=== PATIENT | male | born 1970 | race Hispanic/Latino ===

== ENCOUNTER 2020-05-22 22:19 | Inpatient (IN) | payer MEDICARE ==
[2020-05-22] MEDS ORDERED: AZITHROMYCIN 500 MG in SODIUM CHLORIDE 0.9% 250ML 250 ML IV ONE (22:30)
[2020-05-22] MEDS ORDERED: SODIUM CHLORIDE 0.9% 1000 ML 1,000 ML IV ONE (22:30)
[2020-05-22] MEDS ORDERED: dexAMETHasone 4 MG/ML VIAL IV ONE (22:31)
[2020-05-22] MEDS ORDERED: ONDANSETRON 4 MG/2 ML INJ IV ONE (22:31)
--- NOTE | 2020-05-22 22:32 | Emergency Department Report ---
ED Fever HPI - General Chief Complaint: Fever Stated Complaint: FEVER N/V PUI?: Yes Time Seen by Provider: 05/22/20 22:28 Source: patient, EMS Exam Limitations: clinical condition - History of Present Illness Initial Comments: Patient is a 50-year-old male that presents emergency room with fever and nausea, vomiting, hypoxia. Patient brought in by EMS. Patient was transferred from [facility] to be evaluated in this emergency room. Report received from EMS. EMS states that the prison stated that the patient had fever, nausea, vomiting, cough x3 days. EMS states that the symptoms are worsening per report. Patient able to answer some yes/no questions. Patient is nonverbal. Fever Severity/Quality: greater than 102 F Fever Therapy [employer]ANT: Tylenol Associated Symptoms: cough, nausea/vomiting. denies: abdominal pain, chest pain, confusion, diaphoresis, headache, muscle aches, rash, shortness of breath, sore throat, stiff neck, syncope, weakness ED Review of Systems ROS: Stated complaint: FEVER N/V Other details as noted in HPI Comment: All other systems reviewed and negative ED Past Medical Hx - Past Medical History Previous Medical History?: Yes Hx Hypertension: Yes (no meds in 4 years) Hx CVA: Yes (02/2015) Hx Diabetes: Yes Hx HIV: No - Surgical History Past Surgical History?: No - Family History Family history: no significant - Social History Smoking Status: Never Smoker Substance Use Type: None - Medications Home Medications: Home Medications Medication Instructions Recorded Confirmed Last Taken Type HYDROcodone/APAP 5-325 [[place] 1 each PO Q4H PRN #60 tablet 02/15/15 02/18/15 Unknown Rx 5-325 mg TAB] Insulin NPH/Regular [NovoLIN 70/30] 15 unit SUB-Q BIDDIAB 30 Days ml 02/15/15 02/18/15 02/18/15 Rx Metoprolol [Lopressor TAB] 50 mg PO TID #90 tablet 02/15/15 02/18/15 02/18/15 Rx amLODIPine 10 mg PO QDAY #30 tablet 02/15/15 02/18/15 02/18/15 Rx lisinopriL [Zestril TAB] 20 mg PO BID #60 tablet 02/15/15 02/18/15 02/18/15 Rx ED Physical Exam - General General appearance: alert, in no apparent distress - Head Head exam: Present: atraumatic, normocephalic - Eye Eye exam: Present: normal appearance, PERRL Pupils: Present: normal accommodation - ENT ENT exam: Present: mucous membranes moist - Neck Neck exam: Present: normal inspection - Respiratory Respiratory exam: Present: decreased breath sounds. Absent: respiratory distress, wheezes, rales - Cardiovascular Cardiovascular Exam: Present: regular rate, normal rhythm. Absent: systolic murmur, diastolic murmur, rubs, gallop - GI/Abdominal GI/Abdominal exam: Present: soft, normal bowel sounds - Rectal Rectal exam: Present: deferred - Extremities Exam Extremities exam: Present: normal inspection - Back Exam Back exam: Present: normal inspection - Neurological Exam Neurological exam: Present: alert, altered - Psychiatric Psychiatric exam: Present: normal affect, normal mood - Skin Skin exam: Present: warm, dry, intact, normal color. Absent: rash ED Course Vital Signs 05/22/20 05/22/20 05/22/20 22:20 22:24 22:31 Temperature 98.3 F Pulse Rate 107 H 108 H 109 H Respiratory 18 13 15 Rate Blood Pressure 160/93 160/93 O2 Sat by Pulse 92 92 Oximetry 05/22/20 05/22/20 05/22/20 22:45 23:01 23:15 Temperature Pulse Rate 113 H 110 H 107 H Respiratory 18 20 16 Rate Blood Pressure 160/93 155/108 152/92 O2 Sat by Pulse 96 Oximetry 05/22/20 05/22/20 05/23/20 23:31 23:45 00:01 Temperature Pulse Rate 111 H 99 H 101 H Respiratory 18 12 13 Rate Blood Pressure 153/90 148/88 138/77 O2 Sat by Pulse 97 98 98 Oximetry 05/23/20 05/23/20 05/23/20 00:15 00:31 00:45 Temperature Pulse Rate 101 H 98 H 105 H Respiratory 15 14 16 Rate Blood Pressure 136/69 151/82 153/83 O2 Sat by Pulse 96 97 94 Oximetry 05/23/20 05/23/20 05/23/20 01:01 01:15 01:31 Temperature Pulse Rate 110 H 103 H 99 H Respiratory 13 12 17 Rate Blood Pressure 152/92 153/83 156/81 O2 Sat by Pulse Oximetry 05/23/20 05/23/20 05/23/20 01:45 02:01 02:15 Temperature Pulse Rate 100 H 102 H 102 H Respiratory 15 13 14 Rate Blood Pressure 145/80 147/76 166/92 O2 Sat by Pulse Oximetry 05/23/20 05/23/20 05/23/20 02:31 02:45 03:01 Temperature Pulse Rate 99 H 99 H 107 H Respiratory 15 13 12 Rate Blood Pressure 155/87 152/86 159/93 O2 Sat by Pulse Oximetry 05/23/20 05/23/20 05/23/20 03:15 03:31 03:45 Temperature Pulse Rate 103 H 105 H 101 H Respiratory 16 8 L 13 Rate Blood Pressure 170/83 146/89 163/91 O2 Sat by Pulse 95 95 Oximetry - Reevaluation(s) Reevaluation #1: Patient vomiting. Patient will be given Zofran and fluids. Patient Deven has 1 L of normal saline hanging from EMS. Patient hypoxic and placed on oxygen. Patient's oxygen saturation improved to 99% with 4 L of O2. 05/22/20 22:40 Reevaluation #2: I discussed all results with patient. I discussed plan of care with patient. Patient agrees with plan of care and admission. Patient to be admitted to the hospitalist service. Patient's oxygen better. Patient is not vomiting. Patient receiving fluids and antibiotics. 05/23/20 00:50 - Consultations Consultation #1: Hospitalist consulted for admission. Hospitalist to admit patient. 05/23/20 00:50 ED Medical Decision Making - Lab Data Result diagrams: 05/22/20 22:52 05/23/20 00:56 - Radiology Data Radiology results: report reviewed, image reviewed interpreted by me: Left-sided pneumonia CHEST 1 VIEW INDICATION / CLINICAL INFORMATION: Dyspnea. COMPARISON: None available. FINDINGS: SUPPORT DEVICES: None. HEART / MEDIASTINUM: No significant abnormality. LUNGS / PLEURA: Minimal parenchymal density in the left lower lung No pneumothorax. ADDITIONAL FINDINGS: No significant additional findings. IMPRESSION: Minimal parenchymal density in the left lower lung. The right lung is clear. - Medical Decision Making Patient is a 50-year-old male that presents emergency room with complaints fever and nausea. Patient came [facility] a [facility]. Patient is brought in by EMS. Patient initially found to be hypoxic and was placed on oxygen and his oxygen improved. Patient started on sepsis protocol early in his ER stay. Patient given fluids and antibiotics immediately. Patient's chest x-ray shows a unilateral pneumonia. Patient's labs show a normal white count with a lactic acidosis. Patient also found to have a UTI. Patient admitted to the hosp italist service. - Differential Diagnosis Nausea vomiting, fever, COVID-19, pneumonia, hypoxia Critical Care Time: Yes Critical care time in (mins) excluding proc time.: 45 Critical care attestation.: If time is entered above; I have spent that time in minutes in the direct care of this critically ill patient, excluding procedure time. Critical Care Time: 45 minutes ED Disposition Clinical Impression: SIRS (systemic inflammatory response syndrome), Renal insufficiency, Dehydration, Lactic acid acidosis, Person under investigation for COVID-19 Respiratory failure Qualifiers: Chronicity: acute Respiratory failure complication: hypoxia Qualified Code(s): J96.01 - Acute respiratory failure with hypoxia Pneumonia Qualifiers: Pneumonia type: due to unspecified organism Laterality: left Lung location: unspecified part of lung Qualified Code(s): J18.9 - Pneumonia, unspecified organism UTI (urinary tract infection) Qualifiers: Urinary tract infection type: catheter-associated UTI Indwelling urinary catheter type: indwelling urethral catheter Encounter type: initial encounter Q ualified Code(s): T83.511A - Infection and inflammatory reaction due to indwelling urethral catheter, initial encounter; N39.0 - Urinary tract infection, site not specified Disposition: OP ADMIT IP TO THIS HOSP Is pt being admited?: Yes Does the pt Need Aspirin: No Condition: Critical Time of Disposition: 00:48
[2020-05-22] MEDS ORDERED: cefTRIAXone/NS 2 GM/100 ML 2 GM/100 ML BAG IV ONE (22:43)
[2020-05-22 23:14] LABS: Basophils % (Auto) 0.3 % (0.0-1.8); Hematocrit 42.9 % (35.5-45.6); Hemoglobin 14.5 gm/dl (11.8-15.2); Lymphocytes # (Auto) 0.3 K/mm3 (1.2-5.4); Lymphocytes % (Auto) 5.6 % (13.4-35.0); Mean Corpuscular HGB Conc 34 % (32-34); Mean Corpuscular Volume 87 fl (84-94); Monocytes # (Auto) 0.6 K/mm3 (0.0-0.8); Monocytes % (Auto) 9.8 % (0.0-7.3); Platelet Count 222 K/mm3 (140-440); Red Blood Count 4.92 M/mm3 (3.65-5.03); Red Cell Distribution Width 12.2 % (13.2-15.2)
--- NOTE | 2020-05-22 23:25 | XRay Report ---
CHEST 1 VIEW INDICATION / CLINICAL INFORMATION: Dyspnea. COMPARISON: None available. FINDINGS: SUPPORT DEVICES: None. HEART / MEDIASTINUM: No significant abnormality. LUNGS / PLEURA: Minimal parenchymal density in the left lower lung No pneumothorax. ADDITIONAL FINDINGS: No significant additional findings. IMPRESSION: Minimal parenchymal density in the left lower lung. The right lung is clear. Signer Name: Micky Khan MD FACR Signed: 05/22/2020 11:21 PM Workstation Name: [id number]
[2020-05-22 23:40] LABS: Calcium 9.4 mg/dL (8.4-10.2)
[2020-05-23] MEDS ORDERED: SODIUM CHLORIDE 0.9% 1000 ML 1,000 ML IV ONE ×2 (00:46→00:47)
[2020-05-23 01:16] LABS: Bacteria,Urine 1+ /HPF (Negative); Bilirubin,Urine NEG (Negative); Blood,Urine LG (Negative); Color,Urine Yellow (Yellow); Mucus,Urine FEW /HPF; Urobilinogen,Urine < 2.0 mg/dL (<2.0)
[2020-05-23 01:20] LABS: RBC,Urine > 182.0 /HPF (0.0-6.0)
[2020-05-23] MEDS ORDERED: ACETAMINOPHEN 325 MG TAB PO PRN (01:41)
[2020-05-23] MEDS ORDERED: ONDANSETRON 4 MG/2 ML INJ IV PRN (01:42)
[2020-05-23] MEDS ORDERED: guaiFENesin 100 MG/5 ML ORAL LIQD PO PRN (01:43)
[2020-05-23 01:46] LABS: C-Reactive Protein 6.3 mg/dL (0.00-1.30)
[2020-05-23] MEDS ORDERED: DEXTROSE 50% IN WATER (25GM) 50 ML SYRINGE IV PRN (01:46)
[2020-05-23] MEDS ORDERED: VANCOMYCIN 1,250 MG in SODIUM CHLORIDE 0.9% 250ML 250 ML IV ONE (03:00)
[2020-05-23] MEDS ORDERED: VANCOMYCIN PHARMACY TO DOSE IV SCH (03:00)
--- NOTE | 2020-05-23 04:12 | History and Physical Report ---
History of Present Illness Date of examination: 05/23/20 Date of admission: 05/23/20 01:37 Chief complaint: Fever ,nausea and vomiting and cough History of present illness: 50 year old male who was brought from [facility] with complaint of fever, cough, nausea and vomiting and low oxygen saturation. There is no chest pain. Past History Past Medical History: diabetes, hypertension, stroke Past Surgical History: No surgical history Social history: other (correction resident) Family history: no significant family history Medications and Allergies Allergies Allergy/AdvReac Type Severity Reaction Status Date / Time No Known Allergies Allergy Verified 05/22/20 22:33 Home Medications Medication Instructions Recorded Confirmed Last Taken Type HYDROcodone/APAP 5-325 [[place] 1 each PO Q4H PRN #60 tablet 02/15/15 02/18/15 Unknown Rx 5-325 mg TAB] Insulin NPH/Regular [NovoLIN 70/30] 15 unit SUB-Q BIDDIAB 30 Days ml 02/15/15 02/18/15 02/18/15 Rx Metoprolol [Lopressor TAB] 50 mg PO TID #90 tablet 02/15/15 02/18/15 02/18/15 Rx amLODIPine 10 mg PO QDAY #30 tablet 02/15/15 02/18/15 02/18/15 Rx lisinopriL [Zestril TAB] 20 mg PO BID #60 tablet 02/15/15 02/18/15 02/18/15 Rx Active Meds: Active Medications Acetaminophen (Tylenol) 650 mg PO Q4H PRN PRN Reason: Fever >101 Dextrose (D50w (25gm) Syringe) 50 ml IV Q30MIN PRN; Protocol PRN Reason: Hypoglycemia Guaifenesin (Robitussin) 200 mg PO Q4H PRN PRN Reason: Cough Heparin Sodium (Porcine) (Heparin) 5,000 unit SUB-Q Q12HR BRENDA Azithromycin 500 mg/ Sodium (Chloride) 250 mls @ 250 mls/hr IV Q24H BRENDA; Protocol Ceftriaxone Sodium (Rocephin/Ns 2 Gm/100 Ml) 2 gm in 100 mls @ 200 mls/hr IV Q24H BRENDA; Protocol Vancomycin HCl 1,250 mg/ (Sodium Chloride) 275 mls @ 166.667 mls/hr IV ONCE ONE Stop: 05/23/20 04:38 Insulin Human Regular (Humulin R) 0 unit SUB-Q AC BRENDA; Protocol Insulin Human Regular (Humulin R) 0 unit SUB-Q QHS BRENDA; Protocol Ondansetron HCl (Zofran) 4 mg IV Q8H PRN PRN Reason: Nausea And Vomiting Review of Systems Constitutional: fever, weakness, no weight loss, no weight gain, no chills, no sweats, no night sweats Eyes: bilateral: other (NO BILATERAL EYE SYMPTOM) Ears, nose, mouth and throat: no ear pain, no ear discharge, no decreased hearing, no nose pain, no nasal congestion, no nasal discharge, no sinus pressure, no dental pain, no mouth pain, no dysphagia, no hoarseness, no sore throat, no swelling in mouth, no headache Cardiovascular: shortness of breath, no chest pain, no palpitations, no ra pid/irregular heart beat, no syncope, no lightheadedness, no claudication, no high blood pressure Respiratory: cough, shortness of breath, no congestion Gastrointestinal: nausea, vomiting, no abdominal pain, no constipation, no change in bowel habits, no hematemesis, no hematochezia, no loss of appetite, no jaundice Genitourinary Male: no hematuria, no flank pain, no discharge, no urinary frequency, no urinary hesitancy, no nocturia, no impotence, no testicular pain Rectal: no pain, no itching Musculoskeletal: no neck stiffness, no neck pain, no myalgias Integumentary: no rash, no pruritis, no redness, no sores, no wounds, no jaundice, no boils, no darkening of skin, no acne Neurological: no paralysis, no weakness, no parathesias, no numbness, no tingling, no seizures, no vertigo, no headaches, no migraines, no convulsions, no aphasia, no change in speech, no change in mentation, no confusion, no double vision Psychiatric: no anxiety, no memory loss, no change in sleep habits, no sleep disturbances, no insomnia, no hypersomnia, no change in appetite, no change in libido, no anhedonia, no anxiety attacks Endocrine: no cold intolerance, no heat intolerance, no polyphagia, no polydipsia, no polyuria, no nocturia, no excessive sweating, no thyroid mass, no palpatations, no high blood sugars, no low blood sugars Hematologic/Lymphatic: no lymphadenopathy, no lymphedema, no thrombophilia Allergic/Immunologic: no urticaria, no anaphylaxis Exam - Constitutional Vitals: Temp Pulse Resp BP Pulse Ox 98.3 F 101 H 13 163/91 95 05/22/20 22:20 05/23/20 03:45 05/23/20 03:45 05/23/20 03:45 05/23/20 03:45 General appearance: Present: no acute distress - EENT Eyes: Present: PERRL ENT: hearing intact - Neck Neck: Present: supple, normal ROM - Respiratory Respiratory effort: normal - Cardiovascular Rhythm: regular Heart Sounds: Present: S1 & S2. Absent: gallop, systolic murmur, diastolic m urmur, click - Extremities Extremities: no ischemia, No edema Peripheral Pulses: within normal limits - Abdominal General gastrointestinal: Present: soft, non-tender, non-distended. Absent: tender, distended, rigid, hepatomegaly, splenomegaly, mass Male genitourinary: Present: deferred - Rectal Rectal Exam: deferred - Integumentary Integumentary: Present: clear, warm, dry. Absent: jaundice - Musculoskeletal Musculoskeletal: strength equal bilaterally - Psychiatric Psychiatric: appropriate mood/affect HEART Score - HEART Score Age: 45-65 Risk factors: > 3 risk factors or hx of atherosclerotic disease - Critical Actions Critical Actions: 4-6 pts:12-16.6% risk of adverse cardiac event. Should be admitted Results - Labs CBC & Chem 7: 05/22/20 22:52 05/23/20 00:56 Labs: Laboratory Last Values WBC 6.2 K/mm3 (4.5-11.0) 05/22/20 22:52 RBC 4.92 M/mm3 (3.65-5.03) 05/22/20 22:52 Hgb 14.5 gm/dl (11.8-15.2) 05/22/20 22:52 Hct 42.9 % (35.5-45.6) 05/22/20 22:52 MCV 87 fl (84-94) 05/22/20 22:52 MCH 29 pg (28-32) 05/22/20 22:52 MCHC 34 % (32-34) 05/22/20 22:52 RDW 12.2 % (13.2-15.2) L 05/22/20 22:52 Plt Count 222 K/mm3 (140-440) 05/22/20 22:52 Lymph % (Auto) 5.6 % (13.4-35.0) L 05/22/20 22:52 [place] % (Auto) 9.8 % (0.0-7.3) H 05/22/20 22:52 Eos % (Auto) 0.0 % (0.0-4.3) 05/22/20 22:52 Baso % (Auto) 0.3 % (0.0-1.8) 05/22/20 22:52 Lymph # 0.3 K/mm3 (1.2-5.4) L 05/22/20 22:52 [place] # 0.6 K/mm3 (0.0-0.8) 05/22/20 22:52 Eos # 0.0 K/mm3 (0.0-0.4) 05/22/20 22:52 Baso # 0.0 K/mm3 (0.0-0.1) 05/22/20 22:52 Seg Neutrophils % 84.3 % (40.0-70.0) H 05/22/20 22:52 Seg Neutrophils # 5.2 K/mm3 (1.8-7.7) 05/22/20 22:52 D-Dimer 636.62 ng/mlDDU (0-234) H 05/23/20 00:56 Sodium 140 mmol/L (137-145) 05/22/20 22:52 Potassium 4.5 mmol/L (3.6-5.0) 05/22/20 22:52 Chloride 99.2 mmol/L (98-107) 05/22/20 22:52 Carbon Dioxide 25 mmol/L (22-30) 05/22/20 22:52 Anion Gap 20 mmol/L 05/22/20 22:52 BUN 30 mg/dL (9-20) H 05/22/20 22:52 Creatinine 1.4 mg/dL (0.8-1.3) H 05/22/20 22:52 Estimated GFR 54 ml/min 05/22/20 22:52 BUN/Creatinine Ratio 21 % 05/22/20 22:52 Glucose 237 mg/dL (75-100) H 05/23/20 00:56 Lactic Acid 1.60 mmol/L (0.7-2.0) 05/23/20 00:56 Calcium 9.4 mg/dL (8.4-10.2) 05/22/20 22:52 Ferritin 435.3 ng/mL (30.0-300.0) H 05/23/20 00:56 Total Bilirubin 0.40 mg/dL (0.1-1.2) 05/22/20 22:52 AST 20 units/L (5-40) 05/22/20 22:52 ALT 18 units/L (7-56) 05/22/20 22:52 Alkaline Phosphatase 74 units/L (35-129) 05/22/20 22:52 Lactate Dehydrogenase 214 units/L (91-180) H 05/23/20 00:56 C-Reactive Protein 6.30 mg/dL (0.00-1.30) H 05/23/20 00:56 Total Protein 8.1 g/dL (6.3-8.2) 05/22/20 22:52 Albumin 4.0 g/dL (3.9-5) 05/22/20 22:52 Albumin/Globulin Ratio 1.0 % 05/22/20 22:52 Urine Color Yellow (Yellow) 05/23/20 00:49 Urine Turbidity Slightly-cloudy (Clear) 05/23/20 00:49 Urine pH 7.0 (5.0-7.0) 05/23/20 00:49 Ur Specific [place] 1.009 (1.003-1.030) 05/23/20 00:49 Urine Protein 100 mg/dl mg/dL (Negative) 05/23/20 00:49 Urine Glucose (UA) >=500 mg/dL (Negative) 05/23/20 00:49 Urine Ketones Tr mg/dL (Negative) 05/23/20 00:49 Urine Blood Lg (Negative) 05/23/20 00:49 Urine Nitrite Neg (Negative) 05/23/20 00:49 Urine Bilirubin Neg (Negative) 05/23/20 00:49 Urine Urobilinogen < 2.0 mg/dL (<2.0) 05/23/20 00:49 Ur Leukocyte Esterase Lg (Negative) 05/23/20 00:49 Urine WBC (Auto) 46.0 /HPF (0.0-6.0) H 05/23/20 00:49 Urine RBC (Auto) > 182.0 /HPF (0.0-6.0) 05/23/20 00:49 Urine Bacteria (Auto) 1+ /HPF (Negative) 05/23/20 00:49 Urine Mucus Few /HPF 05/23/20 00:49 Valentin/IV: IV Catheter Type [Right INT / Saline Lock Antecubital] Assessment and Plan - Patient Problems (1) Sepsis Current Visit: Yes Status: Acute Plan to address problem: 1. I.V VANCOMYCIN ANTIBIOTIC 2. I.V NORMAL SALINE MAINTENANCE FLUID 3. I.V ROCEPHINE ANTIBIOTIC 4. I.V ZITHROMYCIN (2) Person under investigation for COVID-19 Current Visit: Yes Status: Acute Plan to address problem: 1. COVID -19 TESTING 2. INFECTIOUS DISEASE CONSULT 3. DROPLET AND CONTACT ISOLATION (3) Pneumonia Current Visit: Yes Status: Acute Qualifiers: Pneumonia type: due to unspecified organism Laterality: left Lung location: unspecified part of lung Qualified Code(s): J18.9 - Pneumonia, unspecified organism Plan to address problem: 1. I.V ZITHROMAX ANTIBIOTIC 2. I.V ROCEPHIN ANTIBIOTIC 3. TYLENOL FOR FEVER (4) Urinary tract infection Current Visit: Yes Status: Acute Plan to address problem: 1.V ROCEPHINE ANTIBIOTIC
[2020-05-23] MEDS ORDERED: HEPARIN 5,000 UNIT/1 ML VIAL ONE (05:08)
[2020-05-23] MEDS: HEPARIN 5,000 UNIT/1 ML VIAL SUB-Q SCH ×2 (05:13→12:54)
[2020-05-23] MEDS: INSULIN REGULAR, HUMAN 100 UNIT/ML 3ML VIAL SUB-Q SCH ×3 (07:25→17:37)
[2020-05-23] MEDS ORDERED: DOCUSATE SODIUM 100 MG CAP PO PRN (10:00)
[2020-05-23] MEDS: CEFEPIME/NS 2 GM/100 ML 2 GM/100 ML BAG IV SCH (10:32)
[2020-05-23 10:33] LABS: BUN/Creatinine Ratio 22; Blood Urea Nitrogen 20 mg/dL (9-20); Calcium 8.3 mg/dL (8.4-10.2); Hemolysis Index 5
[2020-05-23] MEDS: amLODIPine 5 MG TAB PO SCH (12:54)
[2020-05-23] MEDS: buPROPion XL 150 MG TAB PO SCH (12:55)
[2020-05-23] MEDS: carvediloL 12.5 MG TAB PO SCH (12:55)
[2020-05-23] MEDS: TAMSULOSIN 0.4 MG CAP PO SCH (12:56)
[2020-05-23] MEDS: FLUoxetine 10 MG TAB PO SCH (12:56)
--- NOTE | 2020-05-23 15:51 | Event Note ---
Date: 05/23/20 This is a 50-year-old male who is a resident of [facility] with DM, HTN, CVA, depression, and urinary retention/BPH who presents to the emergency department on 05/22 for fever, cough, nausea and vomiting and low oxygen saturation. He was determined to be a COVID PUI. However his COVID PCR resulted as negative 05/23 late afternoon. His home medications have been reconciled. He was placed on IV azithromycin, cefepime, vancomycin for HCAP. He is status post 3 L normal saline IV boluses in the emergency department.
[2020-05-23] MEDS ORDERED: AZITHROMYCIN 500 MG in SODIUM CHLORIDE 0.9% 250ML 250 ML IV SCH (23:00)
[2020-05-23] MEDS ORDERED: cefTRIAXone/NS 2 GM/100 ML 2 GM/100 ML BAG IV SCH (23:00)
[2020-05-24] MEDS: CEFEPIME/NS 2 GM/100 ML 2 GM/100 ML BAG IV SCH ×3 (00:16→22:45)
[2020-05-24] MEDS: carvediloL 12.5 MG TAB PO SCH ×3 (00:17→22:46)
[2020-05-24] MEDS: INSULIN REGULAR, HUMAN 100 UNIT/ML 3ML VIAL SUB-Q SCH ×5 (00:18→22:58)
[2020-05-24] MEDS: HEPARIN 5,000 UNIT/1 ML VIAL SUB-Q SCH ×3 (00:18→22:47)
[2020-05-24 10:20] LABS: Basophils % (Auto) 0.1 % (0.0-1.8); Hematocrit 37.7 % (35.5-45.6); Hemoglobin 12.9 gm/dl (11.8-15.2); Lymphocytes # (Auto) 0.5 K/mm3 (1.2-5.4); Lymphocytes % (Auto) 12.8 % (13.4-35.0); Mean Corpuscular HGB Conc 34 % (32-34); Mean Corpuscular Volume 87 fl (84-94); Monocytes # (Auto) 0.5 K/mm3 (0.0-0.8); Platelet Count 202 K/mm3 (140-440); Red Blood Count 4.35 M/mm3 (3.65-5.03); Red Cell Distribution Width 12.3 % (13.2-15.2)
[2020-05-24 10:44] LABS: Alanine Aminotransferase 21 units/L (7-56); Albumin 3.6 g/dL (3.9-5); BUN/Creatinine Ratio 31; Blood Urea Nitrogen 28 mg/dL (9-20); Calcium 8.5 mg/dL (8.4-10.2); Hemolysis Index 10
[2020-05-24] MEDS: VANCOMYCIN/NS 1 GM/250 ML 1 GM/250 ML BAG IV SCH (11:01)
[2020-05-24] MEDS: TAMSULOSIN 0.4 MG CAP PO SCH (11:02)
[2020-05-24] MEDS: FLUoxetine 10 MG TAB PO SCH (11:02)
[2020-05-24] MEDS: buPROPion XL 150 MG TAB PO SCH (11:02)
[2020-05-24] MEDS: amLODIPine 5 MG TAB PO SCH (11:05)
--- NOTE | 2020-05-24 14:22 | Consultation ---
History of Present Illness - Reason for Consult Consult date: 05/24/20 r/o COVID Requesting physician: NORI BEDOLLA III - History of Present Illness 50 years old male with history of hypertension, CVA in 2014, diabetes, resident of a long-term, brought to the ED on 05/23/2020 due to few day history of fever, nausea, vomiting and found hypoxic. EMS placed patient on 4 L nasal cannula oxygen. Patient is not the best historian. He is mainly nonverbal however follows, and answers yes or no question. On arrival, temperature 98.3, HR 107, O2 sat 92%, initial WBC 6.2. Lactate 2.6. LDH 214. Creatinine 1.4. D-dimer 626. Ferritin 435. CRP 6.3. Procalcitonin 0.14. UA with 46 WBCs large leukocyte esterase, bloody. Chest x-ray shows left lower lobe density. COVID-19 PCR negative. Review of Systems: Unable to obtain, patient is nonverbal Past History Past Medical History: diabetes, hypertension, stroke Past Surgical History: No surgical history Social history: other (long-term resident) Family history: no significant family history Medications and Allergies Allergies Allergy/AdvReac Type Severity Reaction Status Date / Time No Known Allergies Allergy Verified 05/22/20 22:33 Home Medications Medication Instructions Recorded Confirmed Last Taken Type Amlodipine Besylate [Norvasc] 5 mg PO 10 05/23/20 05/23/20 Unknown History Aspirin [Aspirin BABY CHEW TAB] 81 mg PO QDAY 05/23/20 05/23/20 Unknown History AtorvaSTATin [Lipitor] 20 mg PO QHS 05/23/20 05/23/20 Unknown History Docusate Sodium [Colace] 100 mg PO BID PRN 05/23/20 05/23/20 Unknown History FLUoxetine HCL [Fluoxetine HCl] 10 mg PO QDAY 05/23/20 05/23/20 Unknown History Tamsulosin [Flomax] 0.4 mg PO QDAY 05/23/20 05/23/20 Unknown History buPROPion XL [Wellbutrin Xl] 150 mg PO QAM 05/23/20 05/23/20 Unknown History carvediloL [Coreg] 12.5 mg PO BID 05/23/20 05/23/20 Unknown History Active Meds: Active Medications Acetaminophen (Tylenol) 650 mg PO Q4H PRN PRN Reason: Fever >101 Amlodipine Besylate (Amlodipine) 5 mg PO DAILY [facility] Last Admin: 05/24/20 11:05 Dose: 5 mg Documented by: Atorvastatin Calcium (Lipitor) 20 mg PO QHS [facility] Last Admin: 05/24/20 00:19 Dose: 20 mg Documented by: Azithromycin (Zithromax) 500 mg PO QHS [facility] Stop: 05/26/20 22:01 Bupropion HCl (Wellbutrin Xl) 150 mg PO QAM [facility] Last Admin: 05/24/20 11:02 Dose: 150 mg Documented by: Carvedilol (Coreg) 12.5 mg PO BID [facility] Last Admin: 05/24/20 11:05 Dose: 12.5 mg Documented by: Dextrose (D50w (25gm) Syringe) 50 ml IV Q30MIN PRN; Protocol PRN Reason: Hypoglycemia Docusate Sodium (Colace) 100 mg PO BID PRN PRN Reason: Constipation Fluoxetine HCl (Prozac) 10 mg PO QDAY [facility] Last Admin: 05/24/20 11:02 Dose: 10 mg Documented by: Guaifenesin (Robitussin) 200 mg PO Q4H PRN PRN Reason: Cough Heparin Sodium (Porcine) (Heparin) 5,000 unit SUB-Q Q12HR [facility] Last Admin: 05/24/20 11:02 Dose: 5,000 unit Documented by: Vancomycin HCl (Vancomycin/Ns 1 Gm/250 Ml) 1 gm in 250 mls @ 167.007 mls/hr IV Q24HR [facility] Last Admin: 05/24/20 11:01 Dose: 167.007 mls/hr Documented by: Cefepime HCl (Cefepime/Ns 2 Gm/100 Ml) 2 gm in 100 mls @ 200 mls/hr IV Q12HR [facility]; Protocol Last Admin: 05/24/20 11:01 Dose: 200 mls/hr Documented by: Insulin Human Regular (Humulin R) 0 unit SUB-Q [facility]; Protocol Last Admin: 05/24/20 13:04 Dose: Not Given Documented by: Insulin Human Regular ([facility]ulin R) [facility]; Protocol Last Admin: 05/24/20 00:18 Dose: Not Given Documented by: Ondansetron HCl (Zofran) 4 mg IV Q8H PRN PRN Reason: Nausea And Vomiting Tamsulosin HCl (Flomax) 0.4 mg PO QDAY BRENDA Last Admin: 05/24/20 11:02 Dose: 0.4 mg Documented by: Physical Examination - Physical Exam Narrative exam: General appearance: Alert in NAD Eyes: anicteric sclerae, moist conjunctivae; no lid-lag; PERRLA HENT: Atraumatic; oropharynx clear Lungs: Scattered bilateral rhonchi CV: RRR no murmur Abdomen: Soft, non-tender; no masses or hepatosplenomegaly Extremities: no edema, no cyanosis Skin: No rash. Psych: Nonagitated Neuro: alert nonverbal. Moving all extermities - Constitutional Vitals: Vital Signs Temp Pulse Resp BP Pulse Ox 98.4 F 79 16 133/80 92 05/24/20 10:38 05/24/20 11:05 05/24/20 10:38 05/24/20 11:05 05/24/20 10:38 Temperature -Last 24 Hours Temperature 98.4 F Temperature 98.4 F Temperature 97.3 F Temperature 97.4 F Results - Labs CBC & Chem 7: 05/24/20 09:49 05/24/20 09:49 Labs: Abnormal lab results 05/23/20 05/24/20 05/24/20 Range/Units 17:32 09:49 09:49 WBC 4.0 L (4.5-11.0) K/mm3 RDW 12.3 L (13.2-15.2) % Lymph % (Auto) 12.8 L (13.4-35.0) % [place] % (Auto) 12.0 H (0.0-7.3) % Lymph # 0.5 L (1.2-5.4) K/mm3 Seg Neutrophils % 75.1 H (40.0-70.0) % BUN 28 H (9-20) mg/dL POC Glucose 136 H (70-105) Albumin 3.6 L (3.9-5) g/dL Assessment and Plan Cultures: Blood culture 05/23/2020 no growth COVID-19 PCR 05/23/2020- Urine culture 05/23/2020 mixed bacteria Assessment: 50 years old male with history of hypertension, CVA, diabetes, resident of a long-term, admitted on 05/23/2020 due to fever, nausea, vomiting, hypoxic: #Sepsis: With tachycardia and elevated lactate; source likely pneumonia / UTI #Left lower lobe pneumonia: Possible aspiration pneumonitis, COVID-19 PCR negative, chest x-ray with left lower lobe density. Procalcitonin 0.14. #UTI: Urine culture grew mixed bacteria #COLBY: now resolved Recommendations: -Continue cefepime 2 g IV every 12 hours -Continue vancomycin with PK consult -Obtain MRSA PCR -Aspiration precautions -Anticipate to discharge on Ceftin 500 mg p.o. twice daily on doxycycline 100 g p.o. twice daily total 5 days until 05/28/2020 Dr. Cotter will be covering the weekend, Dr. Colon will be rounding on Wednesday. Will follow. Ana María Noriega MD Infectious Diseases [facility] [facility] M [phone] O [phone]
--- NOTE | 2020-05-24 16:14 | Cat Scan Report ---
CTA CHEST WITH CONTRAST INDICATION / CLINICAL INFORMATION: Rule out PE. TECHNIQUE: Axial CT images were obtained through the chest after injection of 100 cc of Omnipaque 350 IV contras t. 3 plane MIP and/or 3D reconstructions were produced. All CT scans at this location are performed u sing CT dose reduction for GLENDYRA by means of automated exposure control. COMPARISON: One view chest radiograph 05/22/2020 FINDINGS: PULMONARY ARTERIES: No pulmonary emboli. THORACIC AORTA: Mild atherosclerotic calcification without acute abnormality. HEART: No significant abnormality. MEDIASTINUM / HAIDER: Mildly enlarged right hilar lymph node measuring up to 1.1 cm. PLEURA: No pleural effusion. No pneumothorax. LUNGS: Bilateral lower lobe patchy consolidative and groundglass opacities. Upper lobes are clear. No mass. UPPER ABDOMEN: No acute findings. SKELETAL STRUCTURES: No significant osseous abnormality. ADDITIONAL FINDINGS: None. IMPRESSION: 1. No CT evidence for pulmonary embolism. 2. Bilateral lower lobe patchy consolidative and groundglass opacities concerning for developing pneu monia. Although this appearance is not typical for Covid 19, such atypical infection is not excluded. Consider laboratory testing as warranted. Recommend continued follow-up until resolution. Signer Name: Ant Arambula MD Signed: 05/24/2020 4:09 PM Workstation Name: [id number]
--- NOTE | 2020-05-24 16:24 | Vascular Lab Report ---
DUPLEX DOPPLER LOWER EXTREMITY VEINS, BILATERAL INDICATION / CLINICAL INFORMATION: Elevated ddimer. TECHNIQUE: Duplex doppler imaging was performed through the veins of both lower extremities using venous chey yann and other maneuvers. COMPARISON: None available. FINDINGS: RIGHT COMMON FEMORAL VEIN: Negative. RIGHT FEMORAL VEIN: Negative. RIGHT POPLITEAL VEIN: Negative. RIGHT CALF VEINS: Negative. LEFT COMMON FEMORAL VEIN: Negative. LEFT FEMORAL VEIN: Negative. LEFT POPLITEAL VEIN: Negative. LEFT CALF VEINS: Negative. ADDITIONAL FINDINGS: None. IMPRESSION: 1. No sonographic evidence for DVT in either lower extremity. Signer Name: Ant Arambula MD Signed: 05/24/2020 4:20 PM Workstation Name: [id number]
--- NOTE | 2020-05-24 17:06 | Progress Note ---
Assessment and Plan - Patient Problems (1) Pulmonary embolism Current Visit: Yes Status: Ruled-out Plan to address problem: -In the setting of supplemental oxygenation, elevated d-dimer (659.9) pulmonary embolism r/o -05/24 bilateral lower extremity Dopplers negative for DVT -05/24 CTA chest negative for pulmonary embolism (2) Sepsis Current Visit: Yes Status: Acute Plan to address problem: -Presented with tachycardia, lactic acidosis, possible source pneumonia/UTI -Cefepime, vancomycin, azithromycin -Lactic acidosis and tachycardia has resolved -Trend CBC -05/22 blood cultures x2, urine culture NGTD (3) Pneumonia Current Visit: Yes Status: Acute Qualifiers: Pneumonia type: due to unspecified organism Laterality: left Lung location: unspecified part of lung Qualified Code(s): J18.9 - Pneumonia, unspecified organism Plan to address problem: -05/23 CXR shows left lower lobe density -Initiated on azithromycin, vancomycin -Supplemental oxygenation as needed -Pulmonary hygiene (4) Urinary tract infection Current Visit: Yes Status: Acute Plan to address problem: -05/22 urine culture pending -IV cefepime (5) Acute kidney injury Current Visit: Yes Status: Resolved Plan to address problem: -Presenting creatinine 1.4 -Creatinine has trended down to 0.9 -likely secondary to vasomotor nephropathy (6) Lactic acid acidosis Current Visit: Yes Status: Acute Plan to address problem: -Initial lactic acid 1.4 -S/P IVF bolus 2L -Most recent creatinine is 0.9 (7) Person under investigation for COVID-19 Current Visit: Yes Status: Acute Plan to address problem: -05/23 COVID PCR negative (8) CVA (cerebral vascular accident) Current Visit: Yes Status: Chronic Plan to address problem: -Blood pressure control with amlodipine and Coreg -Restarted Lipitor and Aspirin -Supportive care (9) Depression Current Visit: Yes Status: Acute Plan to address problem: -Restarted on Prozac and bupropion (10) Urinary retention Current Visit: Yes Status: Acute Plan to address problem: -Restarted on Flomax (11) Type 2 diabetes mellitus Current Visit: No Status: Acute Plan to address problem: -Sliding scale insulin -Accu-Cheks ACHS -Consistent carbohydrate diet with low sodium (12) HTN (hypertension) Current Visit: No Status: Chronic Plan to address problem: -Restarted on amlodipine, Coreg -Blood pressure monitoring per protocol (13) DVT prophylaxis Current Visit: No Status: Acute Plan to address problem: -Heparin twice daily -SCDs to bilateral lower extremities while in bed History Interval history: This is a 50-year-old male who is a resident of [facility] with DM, HTN, CVA, depression, and urinary retention/BPH who presents to the emergency department on 05/22 for fever, cough, nausea and vomiting and low oxygen saturation. He was determined to be a COVID PUI. However his COVID PCR resulted as negative. He was placed on IV azithromycin, cefepime, vancomycin for HCAP. He also had COLBY on admission. He is s/p 3 L normal saline IV boluses in the emergency department. This morning because of the elevated ddimer and oxygen requirements CTA chest and bilateral lower extremity ultrasound Dopplers were ordered. However both of these tests have resulted negative. 05/23: COVID PCR resulted as negative 05/24: CTA chest and bilateral lower extremity Doppler ultrasound negative for PE and DVT. Hospitalist Physical - Constitutional Vitals: Temp Pulse Resp BP Pulse Ox 98.0 F 71 16 110/75 94 05/24/20 15:51 05/24/20 15:51 05/24/20 15:51 05/24/20 15:51 05/24/20 15:51 General appearance: Present: no acute distress - EENT Eyes: Present: PERRL ENT: hearing decreased - Neck Neck: Present: normal ROM - Respiratory Respiratory effort: normal Respiratory: bilateral: CTA - Cardiovascular Rhythm: regular Heart Sounds: Present: S1 & S2. Absent: systolic murmur, diastolic murmur - Extremities Extremities: no ischemia, pulses intact, pulses symmetrical, No edema, normal temperature, normal color Peripheral Pulses: within normal limits - Abdominal General gastrointestinal: soft, non-tender, non-distended, normal bowel sounds - Integumentary Integumentary: Present: clear, warm, dry - Psychiatric Psychiatric: appropriate mood/affect, cooperative - Neurologic Neurologic: CNII-XII intact, focal deficits (RHP) - Allied Health Allied health notes reviewed: nursing, social work, case management HEART Score - HEART Score Age: 45-65 Risk factors: > 3 risk factors or hx of atherosclerotic disease - Critical Actions Critical Actions: 4-6 pts:12-16.6% risk of adverse cardiac event. Should be admitted Results - Labs CBC & Chem 7: 05/24/20 09:49 05/24/20 09:49 Labs: Laboratory Last Values WBC 4.0 K/mm3 (4.5-11.0) L 05/24/20 09:49 RBC 4.35 M/mm3 (3.65-5.03) 05/24/20 09:49 Hgb 12.9 gm/dl (11.8-15.2) 05/24/20 09:49 Hct 37.7 % (35.5-45.6) 05/24/20 09:49 MCV 87 fl (84-94) 05/24/20 09:49 MCH 30 pg (28-32) 05/24/20 09:49 MCHC 34 % (32-34) 05/24/20 09:49 RDW 12.3 % (13.2-15.2) L 05/24/20 09:49 Plt Count 202 K/mm3 (140-440) 05/24/20 09:49 Lymph % (Auto) 12.8 % (13.4-35.0) L 05/24/20 09:49 [place] % (Auto) 12.0 % (0.0-7.3) H 05/24/20 09:49 Eos % (Auto) 0.0 % (0.0-4.3) 05/24/20 09:49 Baso % (Auto) 0.1 % (0.0-1.8) 05/24/20 09:49 Lymph # 0.5 K/mm3 (1.2-5.4) L 05/24/20 09:49 [place] # 0.5 K/mm3 (0.0-0.8) 05/24/20 09:49 Eos # 0.0 K/mm3 (0.0-0.4) 05/24/20 09:49 Baso # 0.0 K/mm3 (0.0-0.1) 05/24/20 09:49 Seg Neutrophils % 75.1 % (40.0-70.0) H 05/24/20 09:49 Seg Neutrophils # 3.0 K/mm3 (1.8-7.7) 05/24/20 09:49 D-Dimer 654.97 ng/mlDDU (0-234) H 05/23/20 09:58 Sodium 144 mmol/L (137-145) 05/24/20 09:49 Potassium 3.7 mmol/L (3.6-5.0) 05/24/20 09:49 Chloride 106.8 mmol/L (98-107) 05/24/20 09:49 Carbon Dioxide 23 mmol/L (22-30) 05/24/20 09:49 Anion Gap 18 mmol/L 05/24/20 09:49 BUN 28 mg/dL (9-20) H 05/24/20 09:49 Creatinine 0.9 mg/dL (0.8-1.3) 05/24/20 09:49 Estimated GFR > 60 ml/min 05/24/20 09:49 BUN/Creatinine Ratio 31 % 05/24/20 09:49 Glucose 96 mg/dL (75-100) 05/24/20 09:49 POC Glucose 98 (70-105) 05/24/20 12:26 Lactic Acid 1.60 mmol/L (0.7-2.0) 05/23/20 00:56 Calcium 8.5 mg/dL (8.4-10.2) 05/24/20 09:49 Ferritin 435.3 ng/mL (30.0-300.0) H 05/23/20 00:56 Total Bilirubin 0.40 mg/dL (0.1-1.2) 05/24/20 09:49 AST 26 units/L (5-40) 05/24/20 09:49 ALT 21 units/L (7-56) 05/24/20 09:49 Alkaline Phosphatase 53 units/L (35-129) 05/24/20 09:49 Lactate Dehydrogenase 214 units/L (91-180) H 05/23/20 00:56 C-Reactive Protein 6.30 mg/dL (0.00-1.30) H 05/23/20 00:56 Total Protein 6.3 g/dL (6.3-8.2) D 05/24/20 09:49 Albumin 3.6 g/dL (3.9-5) L 05/24/20 09:49 Albumin/Globulin Ratio 1.3 % 05/24/20 09:49 Procalcitonin 0.68 ng/mL (<0.15) 05/23/20 09:58 Urine Color Yellow (Yellow) 05/23/20 00:49 Urine Turbidity Slightly-cloudy (Clear) 05/23/20 00:49 Urine pH 7.0 (5.0-7.0) 05/23/20 00:49 Ur Specific [place] 1.009 (1.003-1.030) 05/23/20 00:49 Urine Protein 100 mg/dl mg/dL (Negative) 05/23/20 00:49 Urine Glucose (UA) >=500 mg/dL (Negative) 05/23/20 00:49 Urine Ketones Tr mg/dL (Negative) 05/23/20 00:49 Urine Blood Lg (Negative) 05/23/20 00:49 Urine Nitrite Neg (Negative) 05/23/20 00:49 Urine Bilirubin Neg (Negative) 05/23/20 00:49 Urine Urobilinogen < 2.0 mg/dL (<2.0) 05/23/20 00:49 Ur Leukocyte Esterase Lg (Negative) 05/23/20 00:49 Urine WBC (Auto) 46.0 /HPF (0.0-6.0) H 05/23/20 00:49 Urine RBC (Auto) > 182.0 /HPF (0.0-6.0) 05/23/20 00:49 Urine Bacteria (Auto) 1+ /HPF (Negative) 05/23/20 00:49 Urine Mucus Few /HPF 05/23/20 00:49 Coronavirus (PCR) Negative (Negative) 05/23/20 Unknown Microbiology: Microbiology 05/23/20 00:49 Urine,Clean Catch Urine Culture - Preliminary 05/22/20 23:04 Peripheral/Venous Blood Culture - Preliminary NO GROWTH AFTER 24 HOURS 05/22/20 22:52 Peripheral/Venous Blood Culture - Preliminary NO GROWTH AFTER 24 HOURS Valentin/IV: Voiding Method Diaper IV Catheter Type [Right INT / Saline Lock Forearm] IV Catheter Type [Right INT / Saline Lock Antecubital] Active Medications - Current Medications Current Medications: Generic Name Dose Route Start Last Admin Trade Name Freq PRN Reason Stop Dose Admin Acetaminophen 650 mg 05/23/20 01:41 Tylenol PO Q4H PRN Fever >101 Amlodipine Besylate 5 mg 05/23/20 10:00 05/24/20 11:05 Amlodipine PO 5 mg DAILY BRENDA Administration Atorvastatin Calcium 20 mg 05/23/20 22:00 05/24/20 00:19 Lipitor PO 20 mg QHS BRENDA Administration Azithromycin 500 mg 05/24/20 22:00 Zithromax PO 05/26/20 22:01 QHS BRENDA Bupropion HCl 150 mg 05/23/20 10:00 05/24/20 11:02 Wellbutrin Xl PO 150 mg QAM BRENDA Administration Carvedilol 12.5 mg 05/23/20 10:00 05/24/20 11:05 Coreg PO 12.5 mg BID BRENDA Administration Dextrose 50 ml 05/23/20 01:46 D50w (25gm) Syringe IV Q30MIN PRN Hypoglycemia Protocol Docusate Sodium 100 mg 05/23/20 10:00 Colace PO BID PRN Constipation Fluoxetine HCl 10 mg 05/23/20 10:00 05/24/20 11:02 Prozac PO 10 mg QDAY BRENDA Administration Guaifenesin 200 mg 05/23/20 01:43 Robitussin PO Q4H PRN Cough Heparin Sodium (Porcine) 5,000 unit 05/23/20 01:45 05/24/20 11:02 Heparin SUB-Q 5,000 unit Q12HR BRENDA Administration Vancomycin HCl 1 gm in 250 mls @ 167.007 mls/hr 05/24/20 10:00 05/24/20 11:01 Vancomycin/Ns 1 Gm/250 Ml IV 167.007 mls/hr Q24HR BRENDA Administration Cefepime HCl 2 gm in 100 mls @ 200 mls/hr 05/23/20 10:00 05/24/20 11:01 Cefepime/Ns 2 Gm/100 Ml IV 200 mls/hr Q12HR BRENDA Administration Protocol Insulin Human Regular 0 unit 05/23/20 07:30 05/24/20 17:03 Humulin R SUB-Q Not Given AC [facility] Protocol Insulin Human Regular 0 unit 05/23/20 22:00 05/24/20 00:18 Humulin R SUB-Q Not Given QHS [facility] Protocol Ondansetron HCl 4 mg 05/23/20 01:42 Zofran IV Q8H PRN Nausea And Vomiting Tamsulosin HCl 0.4 mg 05/23/20 10:00 05/24/20 11:02 Flomax PO 0.4 mg QDAY BRENDA Administration
[2020-05-24] MEDS: AZITHROMYCIN 250 MG TAB PO SCH (22:45)
[2020-05-25] MEDS: INSULIN REGULAR, HUMAN 100 UNIT/ML 3ML VIAL SUB-Q SCH ×4 (09:41→22:10)
[2020-05-25] MEDS: amLODIPine 5 MG TAB PO SCH (11:43)
[2020-05-25] MEDS: CEFEPIME/NS 2 GM/100 ML 2 GM/100 ML BAG IV SCH ×2 (11:44→22:20)
[2020-05-25] MEDS: FLUoxetine 10 MG TAB PO SCH (11:44)
[2020-05-25] MEDS: carvediloL 12.5 MG TAB PO SCH ×2 (11:44→22:21)
[2020-05-25] MEDS: VANCOMYCIN/NS 1 GM/250 ML 1 GM/250 ML BAG IV SCH (11:45)
[2020-05-25] MEDS: TAMSULOSIN 0.4 MG CAP PO SCH (11:45)
[2020-05-25] MEDS: HEPARIN 5,000 UNIT/1 ML VIAL SUB-Q SCH ×2 (11:45→22:22)
[2020-05-25] MEDS: ASPIRIN 81 MG TAB CHEW PO SCH (11:46)
[2020-05-25] MEDS: buPROPion XL 150 MG TAB PO SCH (11:46)
--- NOTE | 2020-05-25 13:11 | Progress Note ---
Assessment and Plan Assessment and plan: This is a 50-year-old male who is a resident of [facility] with DM, HTN, CVA, depression, and urinary retention/BPH who presented to the emergency department on 05/22 for fever, cough, nausea and vomiting and low oxygen saturation. He was determined to be a COVID PUI. However his COVID PCR resulted as negative. He was placed on IV azithromycin, cefepime, vancomycin for HCAP. He also had COLBY on admission. He is s/p 3 L normal saline IV boluses in the emergency department. Because of the elevated ddimer and oxygen requirements CTA chest and bilateral lower extremity ultrasound Dopplers were ordered. However both of these tests have resulted negative. 05/23: COVID PCR sent 05/23 is negative 05/24: CTA chest and bilateral lower extremity Doppler ultrasound negative for PE and DVT. 05/25. Pateint is more awake and back to baseline. ID recs appreciated. MRSA PCR pending. DC planning underway. Discussed with medical case worker. - Patient Problems Sepsis Current Visit: Yes Status: Acute but has resolved Plan to address problem: -Presented with tachycardia, lactic acidosis, possible source pneumonia/UTI -Cefepime, vancomycin, azithromycin. -Lactic acidosis and tachycardia has resolved -05/22 blood cultures x2, urine culture NGTD -ID recs appreciated Pneumonia Current Visit: Yes Status: Acute Qualifiers: Pneumonia type: due to unspecified organism Laterality: left Lung location: unspecified part of lung Qualified Code(s): J18.9 - Pneumonia, unspecified organism Plan to address problem: -05/23 CXR shows left lower lobe density -Initiated on azithromycin, vancomycin -Supplemental oxygenation as needed -Pulmonary hygiene -ID recs appreciated -Awaiting MRSA PCR Urinary tract infection Current Visit: Yes Status: Acute Plan to address problem: -Continue antibiotics Acute kidney injury Current Visit: Yes Status: Resolved Plan to address problem: -Presenting creatinine 1.4 -Creatinine has trended down to 0.9 -likely secondary to vasomotor nephropathy CVA (cerebral vascular accident) Current Visit: Yes Status: Chronic Plan to address problem: -Blood pressure control with amlodipine and Coreg -Restarted Lipitor and Aspirin -Supportive care Depression Current Visit: Yes Status: Acute Plan to address problem: -Restarted on Prozac and bupropion Urinary retention Current Visit: Yes Status: Acute Plan to address problem: -Restarted on Flomax Type 2 diabetes mellitus Current Visit: No Status: Acute Plan to address problem: -Sliding scale insulin -Accu-Cheks ACHS -Consistent carbohydrate diet with low sodium Hypertension Current Visit: No Status: Chronic Plan to address problem: -Restarted on amlodipine, Coreg -Blood pressure monitoring per protocol DVT prophylaxis Current Visit: No Status: Acute Plan to address problem: -Heparin twice daily -SCDs to bilateral lower extremities while in bed Disposition - Back to facility in 1-2 days History Interval history: See assessment and plan Hospitalist Physical - Constitutional Vitals: Temp Pulse Resp BP Pulse Ox 98.4 F 78 19 133/90 95 05/25/20 11:05 05/25/20 11:05 05/25/20 11:05 05/25/20 11:05 05/25/20 11:05 General appearance: Present: no acute distress - EENT Eyes: Present: PERRL - Neck Neck: Present: supple, normal ROM - Respiratory Respiratory: bilateral: CTA - Cardiovascular Rhythm: regular Heart Sounds: Present: S1 & S2 - Abdominal General gastrointestinal: soft, non-tender, non-distended - Psychiatric Psychiatric: appropriate mood/affect - Neurologic Neurologic: CNII-XII intact HEART Score - HEART Score Age: 45-65 Risk factors: > 3 risk factors or hx of atherosclerotic disease - Critical Actions Critical Actions: 4-6 pts:12-16.6% risk of adverse cardiac event. Should be admitted Results - Labs CBC & Chem 7: 05/24/20 09:49 05/24/20 09:49 Labs: Laboratory Last Values WBC 4.0 K/mm3 (4.5-11.0) L 05/24/20 09:49 RBC 4.35 M/mm3 (3.65-5.03) 05/24/20 09:49 Hgb 12.9 gm/dl (11.8-15.2) 05/24/20 09:49 Hct 37.7 % (35.5-45.6) 05/24/20 09:49 MCV 87 fl (84-94) 05/24/20 09:49 MCH 30 pg (28-32) 05/24/20 09:49 MCHC 34 % (32-34) 05/24/20 09:49 RDW 12.3 % (13.2-15.2) L 05/24/20 09:49 Plt Count 202 K/mm3 (140-440) 05/24/20 09:49 Lymph % (Auto) 12.8 % (13.4-35.0) L 05/24/20 09:49 [place] % (Auto) 12.0 % (0.0-7.3) H 05/24/20 09:49 Eos % (Auto) 0.0 % (0.0-4.3) 05/24/20 09:49 Baso % (Auto) 0.1 % (0.0-1.8) 05/24/20 09:49 Lymph # 0.5 K/mm3 (1.2-5.4) L 05/24/20 09:49 [place] # 0.5 K/mm3 (0.0-0.8) 05/24/20 09:49 Eos # 0.0 K/mm3 (0.0-0.4) 05/24/20 09:49 Baso # 0.0 K/mm3 (0.0-0.1) 05/24/20 09:49 Seg Neutrophils % 75.1 % (40.0-70.0) H 05/24/20 09:49 Seg Neutrophils # 3.0 K/mm3 (1.8-7.7) 05/24/20 09:49 D-Dimer 654.97 ng/mlDDU (0-234) H 05/23/20 09:58 Sodium 144 mmol/L (137-145) 05/24/20 09:49 Potassium 3.7 mmol/L (3.6-5.0) 05/24/20 09:49 Chloride 106.8 mmol/L (98-107) 05/24/20 09:49 Carbon Dioxide 23 mmol/L (22-30) 05/24/20 09:49 Anion Gap 18 mmol/L 05/24/20 09:49 BUN 28 mg/dL (9-20) H 05/24/20 09:49 Creatinine 0.9 mg/dL (0.8-1.3) 05/24/20 09:49 Estimated GFR > 60 ml/min 05/24/20 09:49 BUN/Creatinine Ratio 31 % 05/24/20 09:49 Glucose 96 mg/dL (75-100) 08/14/20 09:49 POC Glucose 114 (70-105) H 05/25/20 11:20 Lactic Acid 1.60 mmol/L (0.7-2.0) 05/23/20 00:56 Calcium 8.5 mg/dL (8.4-10.2) 05/24/20 09:49 Ferritin 435.3 ng/mL (30.0-300.0) H 05/23/20 00:56 Total Bilirubin 0.40 mg/dL (0.1-1.2) 05/24/20 09:49 AST 26 units/L (5-40) 05/24/20 09:49 ALT 21 units/L (7-56) 05/24/20 09:49 Alkaline Phosphatase 53 units/L (35-129) 05/24/20 09:49 Lactate Dehydrogenase 214 units/L (91-180) H 05/23/20 00:56 C-Reactive Protein 6.30 mg/dL (0.00-1.30) H 05/23/20 00:56 Total Protein 6.3 g/dL (6.3-8.2) D 05/24/20 09:49 Albumin 3.6 g/dL (3.9-5) L 05/24/20 09:49 Albumin/Globulin Ratio 1.3 % 05/24/20 09:49 Procalcitonin 0.68 ng/mL (<0.15) 05/23/20 09:58 Urine Color Yellow (Yellow) 05/23/20 00:49 Urine Turbidity Slightly-cloudy (Clear) 05/23/20 00:49 Urine pH 7.0 (5.0-7.0) 05/23/20 00:49 Ur Specific [place] 1.009 (1.003-1.030) 05/23/20 00:49 Urine Protein 100 mg/dl mg/dL (Negative) 05/23/20 00:49 Urine Glucose (UA) >=500 mg/dL (Negative) 05/23/20 00:49 Urine Ketones Tr mg/dL (Negative) 05/23/20 00:49 Urine Blood Lg (Negative) 05/23/20 00:49 Urine Nitrite Neg (Negative) 05/23/20 00:49 Urine Bilirubin Neg (Negative) 05/23/20 00:49 Urine Urobilinogen < 2.0 mg/dL (<2.0) 05/23/20 00:49 Ur Leukocyte Esterase Lg (Negative) 05/23/20 00:49 Urine WBC (Auto) 46.0 /HPF (0.0-6.0) H 05/23/20 00:49 Urine RBC (Auto) > 182.0 /HPF (0.0-6.0) 05/23/20 00:49 Urine Bacteria (Auto) 1+ /HPF (Negative) 05/23/20 00:49 Urine Mucus Few /HPF 05/23/20 00:49 Coronavirus (PCR) Negative (Negative) 05/23/20 Unknown Microbiology: Microbiology 05/22/20 23:04 Peripheral/Venous Blood Culture - Preliminary NO GROWTH AFTER 48 HOURS 05/22/20 22:52 Peripheral/Venous Blood Culture - Preliminary NO GROWTH AFTER 48 HOURS 05/23/20 00:49 Urine,Clean Catch Urine Culture - Preliminary Valentin/IV: Voiding Method Condom Catheter IV Catheter Type [Right INT / Saline Lock Forearm] IV Catheter Type [Right INT / Saline Lock Antecubital] Active Medications - Current Medications Current Medications: Generic Name Dose Route Start Last Admin Trade Name Freq PRN Reason Stop Dose Admin Acetaminophen 650 mg 05/23/20 01:41 Tylenol PO Q4H PRN Fever >101 Amlodipine Besylate 5 mg 05/23/20 10:00 05/25/20 11:43 Amlodipine PO 5 mg DAILY BRENDA Administration Aspirin 81 mg 05/25/20 10:00 05/25/20 11:46 Baby Aspirin PO 81 mg QDAY BRENDA Administration Atorvastatin Calcium 20 mg 05/23/20 22:00 05/24/20 22:46 Lipitor PO 20 mg QHS BRENDA Administration Azithromycin 500 mg 05/24/20 22:00 05/24/20 22:45 Zithromax PO 05/26/20 22:01 500 mg QHS BRENDA Administration Bupropion HCl 150 mg 05/23/20 10:00 05/25/20 11:46 Wellbutrin Xl PO 150 mg QAM BRENDA Administration Carvedilol 12.5 mg 05/23/20 10:00 05/25/20 11:44 Coreg PO 12.5 mg BID BRENDA Administration Dextrose 50 ml 05/23/20 01:46 D50w (25gm) Syringe IV Q30MIN PRN Hypoglycemia Protocol Docusate Sodium 100 mg 05/23/20 10:00 Colace PO BID PRN Constipation Fluoxetine HCl 10 mg 05/23/20 10:00 05/25/20 11:44 Prozac PO 10 mg QDAY BRENDA Administration Guaifenesin 200 mg 05/23/20 01:43 Robitussin PO Q4H PRN Cough Heparin Sodium (Porcine) 5,000 unit 05/23/20 01:45 05/25/20 11:45 Heparin SUB-Q 5,000 unit Q12HR BRENDA Administration Vancomycin HCl 1 gm in 250 mls @ 167.007 mls/hr 05/24/20 10:00 05/25/20 11:45 Vancomycin/Ns 1 Gm/250 Ml IV 05/28/20 09:59 167.007 mls/hr Q24HR BRENDA Administration Cefepime HCl 2 gm in 100 mls @ 200 mls/hr 05/23/20 10:00 05/25/20 11:44 Cefepime/Ns 2 Gm/100 Ml IV 05/28/20 12:00 100 mls/hr Q12HR BRENDA Administration Protocol Insulin Human Regular 0 unit 05/23/20 07:30 05/25/20 11:48 Humulin R SUB-Q Not Given AC [facility] Protocol Insulin Human Regular 0 unit 05/23/20 22:00 05/24/20 22:58 [facility] Ondansetron HCl 4 mg 05/23/20 01:42 Zofran IV Q8H PRN Nausea And Vomiting Tamsulosin HCl 0.4 mg 05/23/20 10:00 05/25/20 11:45 Flomax PO 0.4 mg QDAY BRENDA Administration
[2020-05-25] MEDS: AZITHROMYCIN 250 MG TAB PO SCH (22:21)
[2020-05-26] MEDS: INSULIN REGULAR, HUMAN 100 UNIT/ML 3ML VIAL SUB-Q SCH (08:16)
[2020-05-26] MEDS: CEFEPIME/NS 2 GM/100 ML 2 GM/100 ML BAG IV SCH (09:47)
[2020-05-26] MEDS: buPROPion XL 150 MG TAB PO SCH (09:48)
[2020-05-26] MEDS: VANCOMYCIN/NS 1 GM/250 ML 1 GM/250 ML BAG IV SCH (09:48)
[2020-05-26] MEDS: ASPIRIN 81 MG TAB CHEW PO SCH (09:48)
[2020-05-26] MEDS: amLODIPine 5 MG TAB PO SCH (09:49)
[2020-05-26] MEDS: HEPARIN 5,000 UNIT/1 ML VIAL SUB-Q SCH (09:49)
[2020-05-26] MEDS: TAMSULOSIN 0.4 MG CAP PO SCH (09:50)
[2020-05-26] MEDS: FLUoxetine 10 MG TAB PO SCH (09:50)
[2020-05-26] MEDS: carvediloL 12.5 MG TAB PO SCH (09:50)
--- NOTE | 2020-05-26 10:21 | Discharge Summary ---
Providers - Providers Date of Admission: 05/23/20 01:37 Date of discharge: 05/26/20 Attending physician: ERICK EUGENE 05/23/20 00:45 Consult to Physician [CONS] Routine Comment: Consulting Provider: JESU PICKARD Physician Instructions: Reason For Exam: pui 05/25/20 08:44 Speech Therapy Evaluation and Treat [CONS] Routine Reason For Exam: evaluate swallowing Primary care physician: [employer] Hospitalization Condition: Fair Hospital course: This is a 50-year-old male who is a resident of [facility] with DM, HTN, CVA, depression, and urinary retention/BPH who presented to the emergency department on 05/22 for fever, cough, nausea and vomiting and low oxygen saturation. He was determined to be a COVID PUI. However his COVID PCR resulted as negative. He was placed on IV azithromycin, cefepime, vancomycin for HCAP. He also had COLBY on admission. He is s/p 3 L normal saline IV boluses in the emergency department. Because of the elevated ddimer and oxygen requirements CTA chest and bilateral lower extremity ultrasound Dopplers were ordered. However both of these tests have resulted negative. 05/23: COVID PCR sent 05/23 is negative 05/24: CTA chest and bilateral lower extremity Doppler ultrasound negative for PE and DVT. 05/25. Patient is more awake and back to baseline. ID recs appreciated. MRSA PCR pending. DC planning underway. Discussed with case reviewer. 05/26. MRSA negative. Discharged on antibiotics. Discussed with case reviewer/manager pediatric Disposition: DC/[place]-[facility]ERT - Discharge Diagnoses (1) Pneumonia Status: Acute Qualifiers: Pneumonia type: due to unspecified organism Laterality: left Lung location: unspecified part of lung Qualified Code(s): J18.9 - Pneumonia, uns pecified organism (2) Sepsis Status: Acute Core Measure Documentation - Palliative Care Palliative Care/ Comfort Measures: Not Applicable - Core Measures Any of the following diagnoses?: none Exam - Constitutional Vitals: Temp Pulse Resp BP Pulse Ox 97.7 F 68 16 140/89 93 05/26/20 05:39 05/26/20 05:39 05/26/20 05:39 05/26/20 05:39 05/26/20 09:27 General appearance: Present: no acute distress, well-nourished - EENT Eyes: Present: PERRL ENT: hearing intact, clear oral mucosa - Neck Neck: Present: supple, normal ROM - Respiratory Respiratory effort: normal Respiratory: bilateral: CTA - Cardiovascular Heart Sounds: Present: S1 & S2. Absent: rub, click - Extremities Extremities: pulses symmetrical, No edema Peripheral Pulses: within normal limits - Abdominal General gastrointestinal: Present: soft, non-tender, non-distended, normal bowel sounds Male genitourinary: Present: normal - Integumentary Integumentary: Present: clear, warm, dry - Musculoskeletal Musculoskeletal: gait normal, strength equal bilaterally - Psychiatric Psychiatric: appropriate mood/affect, intact judgment & insight - Neurologic Neurologic: CNII-XII intact, moves all extremities Plan Diet: regular Additional Instructions: Ceftin 500 mg p.o. twice daily and doxycycline 100 g p.o. twice daily total 5 days until 05/28/2020 Follow up with: PRIMARY CARE,MD [Primary Care Provider] - 7 Days Prescriptions: AtorvaSTATin [Lipitor] 20 mg PO QHS #15 Aspirin [Aspirin BABY CHEW TAB] 81 mg PO QDAY #15 Cefuroxime Axetil [Ceftin] 500 mg PO Q12H #6 ml Docusate Sodium [Colace CAP] 100 mg PO BID PRN #15 cap PRN Reason: Constipation carvediloL [Coreg] 12.5 mg PO BID #30 Tamsulosin [Flomax] 0.4 mg PO QDAY #15 cap Amlodipine Besylate [Norvasc] 5 mg PO 10 #10 DOXYCYCLINE Hyclate [Vibramycin CAP] 100 mg PO Q12HR #6 capsule buPROPion XL [Wellbutrin XL] 150 mg PO QAM #15
[2020-05-26 13:17] VITALS: BP 129/82
== END 2020-05-26 13:42 | DRG 871 ==
LOC: ED 22:19 → 3A 05-23 00:57 → OBSVTOIN 05-23 01:37 → 3A 05-23 08:03
PROVIDERS: ADMIT Internal Medicine; ATTEND Internal Medicine
DX: A41.9 Sepsis, unspecified organism (principal); J18.9 Pneumonia, unspecified organism; J96.01 Acute respiratory failure with hypoxia; T83.511A Infection and inflammatory reaction due to indwelling urethral catheter, initial encounter; N17.9 Acute kidney failure, unspecified; E87.2 Acidosis; N39.0 Urinary tract infection, site not specified; Z68.1 Body mass index [BMI] 19.9 or less, adult; E86.0 Dehydration; E11.9 Type 2 diabetes mellitus without complications; I10 Essential (primary) hypertension; F32.9 Major depressive disorder, single episode, unspecified; N40.1 Benign prostatic hyperplasia with lower urinary tract symptoms; R33.8 Other retention of urine; Z86.73 Personal history of transient ischemic attack (TIA), and cerebral infarction without residual deficits; Z79.4 Long term (current) use of insulin; Z20.828 Contact with and (suspected) exposure to other viral communicable diseases; Y84.6 Urinary catheterization as the cause of abnormal reaction of the patient, or of later complication, without mention of misadventure at the time of the procedure; Y92.89 Other specified places as the place of occurrence of the external cause
CPT/HCPCS: 36415; 71045; 71275; 80048; 80053; 81001; 82140; 82728; 82947; 82962; 83615; 84145; 85025; 85379; 86140; 87040; 87086; 87641; 93970; 94760; G0378; A9270-GY; J0456; J0692; J0696; J1100; J1644; J1815; J2405; J3370; J7030; J7050; Q9967; U0003-CS